=== PATIENT | female | born 1990 ===

== ENCOUNTER 2017-02-18 05:07 | Observation (INO) | payer MEDICAID, OTHER ==
[2017-02-18] MEDS ORDERED: Sodium Chloride 0.9% 1,000 ML IV STA (05:42)
--- NOTE | 2017-02-18 05:52 | ED PDOC ---
HPI: Abdomen Time Seen by Provider: 02/18/17 05:26 Chief Complaint (Nursing): Abdominal Pain Chief Complaint (Provider): abdominal pain History Per: Patient History/Exam Limitations: no limitations Onset/Duration Of Symptoms: Days Current Symptoms Are (Timing): Still Present Location Of Pain/Discomfort: Epigastric, LUQ, Other (left flank) Quality Of Discomfort: Sharp, Cramping, "Pain" Additional History Per: Patient Additional Complaint(s): 26 y/o female presents for eval of abdominal pain x 8 hours. Associated vomiting, radiation of pain to back. Denies fever, cough, chest pain, shortness of breath, changes in bowel movements, urinary symptoms. Past Medical History Reviewed: Historical Data, Nursing Documentation, Vital Signs Vital Signs: Last Vital Signs Temp 98.8 F 02/18/17 05:25 Pulse 126 H 02/18/17 05:25 Resp 18 02/18/17 05:25 BP 119/75 02/18/17 05:25 Pulse Ox 100 02/18/17 05:53 - Medical History PMH: No Chronic Diseases - Surgical History Surgical History: - Family History Family History: States: Unknown Family Hx - Living Arrangements Living Arrangements: With Family - Home Medications Home Medications: Ambulatory Orders Medication Instructions Recorded Ibuprofen [Motrin] 600 mg PO Q6 PRN #20 tab 06/03/15 - Allergies Allergies/Adverse Reactions: Allergies Allergy/AdvReac Type Severity Reaction Status Date / Time codeine AdvReac DIZZINESS Verified 02/18/17 05:31 Review of Systems ROS Statement: Except As Marked, All Systems Reviewed And Found Negative Gastrointestinal: Positive for: Nausea, Vomiting, Abdominal Pain Physical Exam - Reviewed Nursing Documentation Reviewed: Yes Vital Signs Reviewed: Yes - Physical Exam Appears: Positive for: Well, Non-toxic, Uncomfortable Head Exam: Positive for: ATRAUMATIC, NORMAL INSPECTION, NORMOCEPHALIC Skin: Positive for: Normal Color Eye Exam: Positive for: Normal appearance ENT: Positive for: Normal ENT Inspection Cardiovascular/Chest: Positive for: Regular Rate, Rhythm Respiratory: Positive for: Normal Breath Sounds Gastrointestinal/Abdominal: Positive for: Tenderness (epigastric,LUQ) Back: Positive for: Normal Inspection Extremity: Positive for: Normal ROM Neurologic/Psych: Positive for: Alert, Oriented - ECG O2 Sat by Pulse Oximetry: 100 - Progress ED Course And Treament: labs, urine, IV fluids, IV zofrna, Iv pepcid, IV toradol Disposition - Clinical Impression Clinical Impression: Abdominal pain - Patient ED Disposition Is Patient to be Admitted: No - Disposition Disposition: Transfer of Care Disposition Time: 06:01 Condition: FAIR Patient Signed Over To: Esequiel Gordon Handoff Comments: pending labs, re-eval
[2017-02-18 05:57] LABS: BASO % 0.3 % (0.0-2.0); EOS % 0.3 % (0.0-4.0); HEMOGLOBIN 14.8 g/dL (12.0-16.0); MEAN CELL VOLUME 94.5 fl (81.0-99.0); MEAN CORPUSCULAR HEMOGLOBIN 32.1 pg (27.0-31.0); MEAN CORPUSCULAR HGB CONC 33.9 g/dL (33.0-37.0); MEAN PLATELET VOLUME 8.6 fl (7.2-11.7); MONO # 0.9 K/uL (0.0-0.8); MONO % 7.7 % (0.0-10.0); NEUT # 10.1 K/uL (1.8-7.0); NEUT % 83.7 % (50.0-75.0); PLATELET COUNT 274 K/uL (130-400); RBC 4.62 Mil/uL (3.80-5.20); RED CELL DISTRIBUTION WIDTH 13.4 % (11.5-14.5)
[2017-02-18 06:10] LABS: SQUAMOUS EPITHIAL 1 /hpf (0-5); URINE BILIRUBIN NEGATIVE (NEGATIVE); URINE BLOOD NEGATIVE (NEGATIVE); URINE CLARITY CLEAR (Clear); URINE COLOR YELLOW (YELLOW); URINE GLUCOSE (UA) NEG (Normal); URINE LEUKOCYTE ESTERASE NEG Leu/uL (Negative); URINE NITRATE NEGATIVE (NEGATIVE); URINE PROTEIN NEGATIVE (NEGATIVE); URINE UROBILINOGEN 0.2-1.0 mg/dL (0.2-1.0)
--- NOTE | 2017-02-18 06:11 | ED PDOC ---
- Laboratory Results Result Diagrams: 02/18/17 05:52 02/18/17 05:52 - ECG O2 Sat by Pulse Oximetry: 100 Medical Decision Making Medical Decision Makin Patient signed out to me from DWAYNE Jones pending labs and re-evaluation. Scribe Attestation: Documented by Salma Rae acting as a scribe for Esequiel Gordon MD. Scribe Attestation: All medical record entries made by the Scribe were at my direction and personally dictated by me. I have reviewed the chart and agree that the record accurately reflects my personal performance of the history, physical exam, medical decision making, and the department course for this patient. I have also personally directed, reviewed, and agree with the discharge instructions and disposition. Disposition - Clinical Impression Clinical Impression: Abdominal pain - POA Present On Arrival: None - Disposition Referrals: Francisco Tilley MD [Primary Care Provider] - Disposition: Transfer of Care Disposition Time: 07:00 Condition: FAIR Patient Signed Over To: Ashleigh Parra Handoff Comments: Pending re-evaluation
[2017-02-18 06:15] LABS: ALB/GLOB RATIO 1.4 (1.0-2.1); ALBUMIN 4.7 g/dL (3.5-5.0); ALT/SGPT 31 U/L (9-52); AST/SGOT 19 U/L (14-36); BLOOD UREA NITROGEN 15 mg/dl (7-17); CALCIUM 9.3 mg/dL (8.4-10.2); GFR AFRICAN-AMERICAN > 60; GFR NON-AFRICAN AMERICAN > 60; LIPASE 90 U/L (23-300)
[2017-02-18 07:17] LABS: BANDS 6 % (0-2); LYMPHOCYTE 14 % (20-50); MONOCYTE 5 % (0-10); NEUTROPHIL 73 % (42-75); REACTIVE LYMPHOCYTES 2 % (0-0); TOTAL CELLS COUNTED 100
[2017-02-18 07:19] LABS: ANISOCYTOSIS SLIGHT; HYPOCHROMIC SLIGHT; LARGE PLATELETS PRESENT; TEARDROP CELLS SLIGHT
[2017-02-18 07:20] LABS: PLATELET ESTIMATE NORMAL (NORMAL)
--- NOTE | 2017-02-18 07:21 | ED PDOC ---
- Laboratory Results Result Diagrams: 02/18/17 05:52 02/18/17 05:52 - ECG O2 Sat by Pulse Oximetry: 100 (RA) Pulse Ox Interpretation: Normal Disposition - Clinical Impression Clinical Impression: Epigastric pain - POA Present On Arrival: None - Disposition Disposition: Routine/Home Disposition Time: 13:07 Condition: STABLE ED OBSERVATION Date of observation admission: 02/18/17 Time of observation admission: 07:00 - Observation admission statement Patient is being placed in observation because:: Abdominal pain - Progress Note Progress Note: 9:28 Patient is resting comfortable 02/18/17 12:08 Patient is resting comfortably. Addendum Addendum: 02/18/17 07:21 Pt signed out by Dr[address] Gordon pending reevaluation. 02/18/17 07:57 [id number] - Reevaluation Patient states she still has epigastric pain and does have some epigastric tenderness Scribe Attestation Documented by Karrie Staton acting as a scribe for Ashleigh Parra MD. Provider Attestation All medical record entries made by the Scribe were at my direction and personally dictated by me. I have reviewed the chart and agree that the record accurately reflects my personal performance of the history, physical exam, medical decision making, and the department course for this patient. I have also personally directed, reviewed, and agree with the discharge instructions and disposition.
--- NOTE | 2017-02-18 13:03 | US ---
HISTORY: Epigastric pain COMPARISON: None. TECHNIQUE: Sonographic evaluation of the right upper quadrant of the abdomen. FINDINGS: LIVER: Measures 13.1 cm in length. Normal echogenicity of the liver parenchyma. No mass. No intrahepatic bile duct dilatation. GALLBLADDER: Unremarkable. No gallstones. COMMON BILE DUCT: Measures 3.9 mm. No stones. No dilatation. PANCREAS: Obscured by overlying bowel gas. Non diagnostic assessment of the pancreas. RIGHT KIDNEY: Measures 3.6 x 4.8 x 9 cm in length. Normal echogenicity. No calculus, mass, or hydronephrosis. AORTA: No aneurysmal dilatation. IVC: Unremarkable. OTHER FINDINGS: None . IMPRESSION: No acute findings related to/accounting for the clinical presentation.Limitations of the current examination: Nondiagnostic study of the pancreas obscured by bowel gas.
[2017-02-18 13:23] VITALS: BP 126/79; PULSE 70; RESP 18; TEMP 98.4
[2017-02-19 13:58] VITALS: O2SAT 100
== END 2017-02-18 13:07 | disposition home or self-care (01) ==
LOC: H.ER 05:07 → H.EROBSV 08:19
PROVIDERS: ADMIT Emergency Medicine; ATTEND Emergency Medicine
DX: R10.13 Epigastric pain (principal); R10.12 Left upper quadrant pain; Z88.6 Allergy status to analgesic agent